=== PATIENT | female | born 2005 | race Caucasian/White ===

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

== ENCOUNTER 2025-04-04 18:56 | Inpatient (IN) | payer BC ==
[~2025-04-04] VITALS: Ht 154.9 cm; Wt 87.4 kg
[~2025-04-04 18:56] MED LIST changes: -FAMO1TAB11; +FAMO1TAB11 PO; -HUMA100I5; +HUMA100I5 SC; -TRES1INJ2; +TRES1INJ2 SC; -VITA200016; +VITA200016 PO
[2025-04-04] MEDS ORDERED: ARIP1TAB6 PO (19:38)
[2025-04-04] MEDS ORDERED: BUDE10.3 INH (19:38)
[2025-04-04] MEDS ORDERED: DOCU100C16 (19:38)
[2025-04-04] MEDS ORDERED: SERTRALINE (19:38)
[2025-04-04] MEDS ORDERED: BUDE10.22 (19:38)
[2025-04-04 20:28] LABS: PLATELET COUNT, AUTOMATED 270 10^3/uL (150-450)
[2025-04-04 20:44] LABS: AMPHETAMINES LEVEL URINE NEGATIVE (NEGATIVE); BARBITURATES URINE NEGATIVE (NEGATIVE); BENZODIAZEPINES URINE NEGATIVE (NEGATIVE); CANNABINOIDS URINE NEGATIVE (NEGATIVE); COCAINE METABOLITE URINE NEGATIVE (NEGATIVE); METHADONE URINE NEGATIVE (NEGATIVE); OPIATES URINE NEGATIVE (NEGATIVE); PHENCYCLIDINE URINE NEGATIVE (NEGATIVE)
[2025-04-04 20:47] LABS: ETHYL ALCOHOL (ETHANOL) < 0.003 % (0.000-0.010); HCG, SERUM QUALITATIVE NEGATIVE (NEGATIVE)
[2025-04-04 20:48] LABS: SALICYLATE LEVEL < 3.0 MG/DL (<30)
[2025-04-04 20:49] LABS: ALT/SGPT 14 U/L (7.0-40); AST/SGOT 16 U/L (<34); CALCIUM LEVEL 9.4 MG/DL (8.5-10.1); CARBON DIOXIDE LEVEL 24 MMOL/L (20-31); CHLORIDE LEVEL 107 MMOL/L (98-107); CREATININE FOR GFR 0.60 MG/DL (0.55-1.30); GLOMERULAR FILTRATION RATE > 90.0 (>60); POTASSIUM SERUM 3.8 MMOL/L (3.5-5.1); SODIUM LEVEL 141 MMOL/L (136-145)
[2025-04-04 20:58] LABS: ESTIMATED AVERAGE GLUCOSE 214.0 MG/DL (60-110)
[2025-04-04] MEDS ORDERED: SERT25TA21 PO (23:36)
[2025-04-04] MEDS ORDERED: ZOLO100T PO (23:36)
[2025-04-04] MEDS ORDERED: GUMMCHW PO (23:37)
[2025-04-04] MEDS ORDERED: BUPR150T12 PO (23:38)
[2025-04-04] MEDS ORDERED: HOME MED LIST COMPLETE! XX SCH (23:40)
[2025-04-05] MEDS ORDERED: MAALOX 30 ML SUSP *UDC PO PRN (00:50)
[2025-04-05] MEDS ORDERED: GLUCAGON INJ 1 MG VIAL SC PRN (00:50)
[2025-04-05] MEDS ORDERED: traZODone 50 MG TAB PO PRN (00:50)
[2025-04-05] MEDS ORDERED: DEXTROSE 50% 50 ML SYRINGE IV PRN (00:50)
[2025-04-05] MEDS ORDERED: GLUCOSE 4 GM CHEW PO PRN (00:50)
[2025-04-05] MEDS ORDERED: MOM 30 ML SUSPENSION UDC PO PRN (00:50)
[2025-04-05] MEDS ORDERED: IBUPROFEN 400 MG TAB PO PRN (00:50)
[2025-04-05] MEDS ORDERED: ACETAMINOPHEN 325 MG TAB PO PRN (00:50)
[2025-04-05 03:01] VITALS: BP 128/73; TEMP 98; O2SAT 99
[2025-04-05 06:14] VITALS: BP 121/72; TEMP 97.3; O2SAT 95
[2025-04-05] MEDS: SYMBICORT 80/4.5MCG INHALER 6GM INH SCH (08:06)
[2025-04-05] MEDS: SERTRALINE 100 MG TAB PO SCH (08:07)
[2025-04-05] MEDS: SERTRALINE HCL 25 MG TABLET PO SCH (08:07)
[2025-04-05] MEDS: buPROPion **XL** 150 MG TABLET PO SCH (08:07)
[2025-04-05] MEDS: INSULIN LISPRO (NovoLOG) PER UNIT SC SCH (08:08)
[2025-04-05] MEDS ORDERED: FAMOTIDINE 20 MG TAB PO SCH (09:00)
[2025-04-05] MEDS ORDERED: FLUZONE VACCINE TRI PF(25-26) 0.5ML SYRINGE IM.IMMUN ONE (14:00)
[2025-04-05] MEDS ORDERED: INSULIN LISPRO (NovoLOG) PER UNIT SC SCH (21:00)
== END 2025-04-05 12:29 | disposition home or self-care (01) | DRG 754 ==
LOC: M ED 18:56 → M ED INP 04-05 00:47 → M PSY 04-05 02:18
PROVIDERS: ADMIT Psychiatry & Neurology Neurology; ATTEND Psychiatry & Neurology Neurology
DX: F32.A Depression, unspecified (principal); E10.9 Type 1 diabetes mellitus without complications; R45.851 Suicidal ideations; F84.0 Autistic disorder; F41.9 Anxiety disorder, unspecified; Z91.51 Personal history of suicidal behavior; Z79.4 Long term (current) use of insulin; Z79.899 Other long term (current) drug therapy